=== PATIENT | male | born 1980 | race Caucasian/White ===

== ENCOUNTER 2022-05-12 09:58 | Emergency (ER) | payer SELFPAY ==
[~2022-05-12] VITALS: Ht 170.2 cm; Wt 54.4 kg
[2022-05-12 10:00] VITALS: BP_SYST 131
--- NOTE | 2022-05-12 10:00 | NUR ---
BROUGHT IN BY FRED HOFFMAN AND PLACED IN HALLWAY CHAIR, TRIAGED. REPORT GIVEN TO KERRIE
--- NOTE | 2022-05-12 10:05 | NUR ---
Pt brought in by [facility]. CC Medical clearance. Pt is aaox3, pt states sensitivity to skin over the years of exposure to dust mites.
--- NOTE | 2022-05-12 10:09 | NUR ---
ER at bedside examining patient.
--- NOTE | 2022-05-12 10:17 | NUR ---
Patient given written and verbal discharge instructions and verbalizes understanding. ER MD discussed with patient the results and treatment provided. Patient in stable condition. ID arm band removed. Opportunity for questions provided and answered. Medication side effect fact sheet provided.
[2022-05-12 13:57] VITALS: BP_SYST 131
== END 2022-05-12 10:17 | disposition home or self-care (01) ==
LOC: SED 09:58
DX: Z02.89 Encounter for other administrative examinations (principal)
CPT/HCPCS: 99283